=== PATIENT | female | born 1965 | race Caucasian/White ===

== ENCOUNTER → 2017-04-01 | Outpatient (CLI) | payer OTHER ==
--- NOTE | 2017-04-02 16:18 | MAM ---
EXAM DESCRIPTION: Screening Mammogram,Bilateral CLINICAL HISTORY: 51 yearsFemaleSCREENING. Postmenopausal. HRT less than five years ago. Previous left breast cyst aspiration.. COMPARISON: Digital diagnostic duodenum mammography 06/19/2015. Digital 2-D bilateral screening study 05/22/2015.. No prior reports available. TECHNIQUE: Bilateral CC and MLO projection full-field images, digital screening mammographic technique. CAD was utilized. FINDINGS: The breast parenchymal density pattern is: Heterogeneously dense breast tissue, which may obscure small masses. No skin thickening or nipple retraction . Scattered microcalcifications associated with this dense tissue bilaterally. Possible group of heterogeneous calcifications in the posterior third of the upper-outer quadrant of the left breast associated with heterogeneously dense tissues. This is approximately 12 cm from the nipple. Not well seen on the prior study. Bilateral axillary lymph nodes. No focal, stellate mass or density, focal asymmetry bilaterally. no suspicious microcalcifications right breast. IMPRESSION: BI-RADS CATEGORY: 0 - INCOMPLETE- Need additional imaging evaluation. FOLLOW-UP: Recall for additional imaging: Digital orthogonal spot magnification of the region of interest in the posterior third upper outer quadrant left breast. Followed by targeted left breast ultrasound. Written communication explaining the results and follow-up will be mailed to the patient and referring care provider. Electronically signed by: Jean Leon MD 04/02/2017 4:17 PM CDT Workstation: [id number]
== END ==
LOC: MAMMO 09:30
PROVIDERS: ATTEND Obstetrics & Gynecology
DX: Z12.31 Encounter for screening mammogram for malignant neoplasm of breast (principal)